=== PATIENT | female | born 1995 | race Caucasian/White ===

== ENCOUNTER 2023-03-05 11:51 | Emergency (ER) | payer OTHER ==
[~2023-03-05] VITALS: Ht 152.4 cm; Wt 106.6 kg
[2023-03-05] MEDS ORDERED: IBUP200T46 PO (12:02)
[2023-03-05] MEDS ORDERED: diazePAM 10 MG TAB PO ONE (12:50)
[2023-03-05] MEDS ORDERED: ACETAMINOPHEN 500 MG TAB PO ONE (12:50)
[2023-03-05] MEDS ORDERED: LIDOCAINE 5% (LIDODERM) PATCH TD ONE (12:50)
[2023-03-05] MEDS ORDERED: ASPE4PAD TOP (14:32)
[2023-03-05] MEDS ORDERED: METH-1165 PO (14:32)
[2023-03-05 14:43] VITALS: BP 124/86
== END 2023-03-05 14:44 | disposition home or self-care (01) ==
LOC: M ED 11:51
DX: M54.50 Low back pain, unspecified (principal)

== ENCOUNTER → 2023-04-08 | Outpatient (CLI) | payer OTHER ==
[~2023-04-08] MED LIST: ASPE4PAD TOP; IBUP200T46 PO; METH-1165 PO
== END ==
LOC: M SOG 08:15
PROVIDERS: ATTEND Orthopaedic Surgery
DX: M54.50 Low back pain, unspecified (principal); Z53.8 Procedure and treatment not carried out for other reasons